=== PATIENT | female | born 1955 | race Caucasian/White ===

== ENCOUNTER 2018-05-11 08:12 | Emergency (ER) | payer OTHER ==
[~2018-05-11] VITALS: Ht 157.5 cm; Wt 59.5 kg
[2018-05-11 08:14] VITALS: BP 139/92; Ht 157.5 cm; Wt 59.5 kg
[2018-05-11] MEDS ORDERED: VOLTAREN75 MG PO (09:12)
[2018-05-11] MEDS ORDERED: CYCLOBENZAPRINE10 MG PO (09:12)
== END 2018-05-11 09:35 | disposition home or self-care (01) ==
LOC: D.ER 08:12
DX: M54.2 Cervicalgia (principal)